=== PATIENT | female | born 1940 | race Caucasian/White ===

== ENCOUNTER 2022-10-04 11:45 | Emergency (ER) | payer OTHER, MEDICARE ==
[~2022-10-04] VITALS: Ht 162.6 cm; Wt 52.2 kg
[2022-10-04 13:27] VITALS: BP 152/72
== END 2022-10-04 13:27 | disposition home or self-care (01) ==
LOC: EDH 11:45 → EDBD 11:45 → EDH 13:27
DX: S80.811A Abrasion, right lower leg, initial encounter (principal); V89.2XXA Person injured in unspecified motor-vehicle accident, traffic, initial encounter; Y93.89 Activity, other specified; Y92.89 Other specified places as the place of occurrence of the external cause; Y99.8 Other external cause status

== ENCOUNTER → 2024-11-12 | Outpatient (CLI) | payer MEDICARE ==
--- NOTE | 2024-11-12 14:36 | HMCIMG ---
Exam Type: MRI hip, no gadolinium, right Technique: Examination is done with multiecho multiplanar sequences, with and without fat saturation. No gadolinium was used. Findings: The examination is unremarkable. Specifically, the bony and cartilaginous structures of the hip joint are preserved. There is no significant effusion. No fractures or dislocations are identified. No bone lesions are seen. There is no evidence of avascular necrosis. The visualized soft tissue structures of the hip are unremarkable as well. Visualized portions of the bladder appear unremarkable. Visualized pelvic viscera, muscular and subcutaneous compartments are preserved. Impression: Normal examination of the hip.
== END | disposition home or self-care (01) ==
LOC: RAH 13:14
PROVIDERS: ATTEND Student in an Organized Health Care Education/Training Program
DX: M70.61 Trochanteric bursitis, right hip (principal); M25.551 Pain in right hip; G89.29 Other chronic pain
CPT/HCPCS: 73721